=== PATIENT | female | born 1985 | race Two or more races ===

== ENCOUNTER 2017-11-24 20:35 | Emergency (ER) | payer OTHER ==
[~2017-11-24] VITALS: Ht 157.5 cm; Wt 50.8 kg
[~2017-11-24 20:35] MED LIST: TRINESSA1 TAB
[2017-11-24] MEDS ORDERED: FLONASE ALLERG9.9 ML NASAL (21:32)
[2017-11-24] MEDS ORDERED: PROMETHAZINE D118 ML PO (21:32)
[2017-11-24] MEDS ORDERED: CELEBREX100 MG PO (21:32)
[2017-11-24] MEDS ORDERED: ZITHROMAX500 MG PO (21:32)
== END 2017-11-24 21:47 | disposition home or self-care (01) ==
LOC: ER 20:35
DX: J37.0 Chronic laryngitis (principal)

== ENCOUNTER → 2021-08-23 | Emergency (ER) | payer OTHER ==
[~2021-08-23] VITALS: Ht 167.6 cm; Wt 47.6 kg
[~2021-08-23] MED LIST changes: +CELEBREX100 MG PO; +FLONASE ALLERG9.9 ML NASAL; +PROMETHAZINE D118 ML PO; +ZITHROMAX500 MG PO
== END | disposition home or self-care (01) ==
LOC: ER 15:46
DX: R42 Dizziness and giddiness (principal); E83.51 Hypocalcemia; H53.8 Other visual disturbances; Z88.0 Allergy status to penicillin; Z88.1 Allergy status to other antibiotic agents; Z88.8 Allergy status to other drugs, medicaments and biological substances

== ENCOUNTER 2022-07-28 16:23 | Emergency (ER) | payer OTHER ==
[~2022-07-28] VITALS: Ht 157.5 cm; Wt 45.4 kg
== END 2022-07-28 21:16 | disposition home or self-care (01) ==
LOC: ER 16:23
DX: R11.2 Nausea with vomiting, unspecified (principal); E16.2 Hypoglycemia, unspecified; Z88.8 Allergy status to other drugs, medicaments and biological substances